=== PATIENT | male | born 1980 | race Caucasian/White ===

== ENCOUNTER 2017-02-23 18:03 | Emergency (ER) | payer MEDICAID ==
[~2017-02-23] VITALS: Ht 172.7 cm; Wt 89.7 kg
[2017-02-23 18:48] LABS: HEMOGLOBIN 15.1 g/dL (13.7-18.0)
[2017-02-23 18:58] LABS: BLOOD UREA NITROGEN 12 mg/dL (7-18)
[2017-02-23 19:01] LABS: ASPARTATE AMINO TRANSFERASE 28 U/L (15-37)
[2017-02-23 20:32] VITALS: BP 122/79
== END 2017-02-23 21:29 | disposition home or self-care (01) ==
LOC: ED 21:24
DX: R10.84 Generalized abdominal pain (principal); R11.2 Nausea with vomiting, unspecified
CPT/HCPCS: 36415; 74020; 76700; 80053; 81003; 83690; 85025